=== PATIENT | female | born 1995 | race Caucasian/White ===

== ENCOUNTER 2017-06-21 18:59 | Emergency (ER) | payer BC, OTHER ==
[2017-06-21] MEDS: CEPHALEXIN 500 MG CAP PO (21:32)
[2017-06-21] MEDS: LIDOCAINE 1%/EPI 30 ML INJ INJ (21:32)
[2017-06-21] MEDS: TRIMETHOPRIM/SULFAMETHOX (DS) TAB PO (21:32)
== END 2017-06-21 22:25 | disposition home or self-care (01) ==
LOC: FTE 22:25
DX: L03.818 Cellulitis of other sites (principal)
CPT/HCPCS: 10060; 99284-25

== ENCOUNTER 2018-04-11 08:33 | Emergency (ER) | payer BC ==
[2018-04-11] MEDS: ONDANSETRON (ODT) 4 MG TAB ODT (09:15)
[2018-04-11] MEDS: HYDROCODONE/APAP (5/325) TAB PO (09:15)
[2018-04-11 09:33] LABS: ADD MAN DIFF? NO
[2018-04-11 09:36] LABS: WHITE BLOOD COUNT 6.8 10^3/ul (4.8-10.8)
[2018-04-11 09:36] LABS: BASOPHILS % 0.3 % (0.0-2.0); EOSINOPHILS # 0.3 10^3/ul (0.0-0.5); EOSINOPHILS % 3.8 % (0.0-7.0); HEMATOCRIT 35.9 % (37.0-47.0); LYMPHOCYTES # 1.6 10^3/ul (0.8-2.9); LYMPHOCYTES % 22.9 % (15.0-51.0); MEAN CORPUSCULAR HEMOGLOBIN 25.6 pg (29.0-33.0); MEAN CORPUSCULAR HGB CONC 30.6 g/dl (32.0-37.0); MEAN CORPUSCULAR VOLUME 83.5 fl (82.0-101.0); MEAN PLATELET VOLUME 9.8 fl (7.4-10.4); MONOCYTE # 0.3 10^3/ul (0.3-0.9); MONOCYTES % 4.6 % (0.0-11.0); NEUTROPHIL # 4.6 10^3/ul (1.6-7.5); NEUTROPHILS % 68.1 % (39.0-77.0); PLATELET COUNT 449 10^3/UL (140-415); RED CELL DISTRIBUTION WIDTH 13.4 % (11.5-14.5)
[2018-04-11 09:56] LABS: ALANINE AMINOTRANSFERASE 11 IU/L (13-69); ALBUMIN 3.7 g/dl (3.3-4.9); ALBUMIN/GLOBULIN RATIO 1.15; ALKALINE PHOSPHATASE 113 IU/L (42-121); ANION GAP 11 (5-13); ASPARTATE AMINO TRANSFERASE 19 IU/L (15-46); BILIRUBIN,INDIRECT 0.4 mg/dl (0-1.1); BILIRUBIN,TOTAL 0.4 mg/dl (0.2-1.3); BLOOD UREA NITROGEN 8 mg/dl (7-20); CALCIUM 9.3 mg/dl (8.4-10.2); CARBON DIOXIDE 26 mmol/L (21-31); CHLORIDE 101 mmol/L (97-110); CREATININE 0.57 mg/dl (0.44-1.00); Estimated GFR > 60 mL/min (>60); POTASSIUM 4.5 mmol/L (3.5-5.1); SODIUM 138 mmol/L (135-144); TOTAL PROTEIN 6.9 g/dl (6.1-8.1)
[2018-04-11 09:58] LABS: GLUCOSE 441 mg/dl (70-220)
[2018-04-11] MEDS: SOD CHLORIDE 0.9% 1,000 ML IV (10:24)
[2018-04-11 10:42] LABS: ADD UMIC NO; UR ASCORBIC ACID NEGATIVE (NEGATIVE); UR BILIRUBIN (Dip) NEGATIVE (NEGATIVE); UR BLOOD (Dip) NEGATIVE (NEGATIVE); UR CLARITY CLEAR (CLEAR); UR COLOR STRAW (YELLOW); UR GLUCOSE (Dip) 3+ mg/dL (NEGATIVE); UR KETONES (Dip) TRACE mg/dL (NEGATIVE); UR LEUKOCYTE ESTERASE (Dip) NEGATIVE Leu/ul (NEGATIVE); UR NITRITE (Dip) NEGATIVE (NEGATIVE); UR SPECIFIC GRAVITY (Dip) 1.022 (1.003-1.030); UR TOTAL PROTEIN (Dip) NEGATIVE (NEGATIVE); UR UROBILINOGEN (Dip) NEGATIVE (NEGATIVE)
[2018-04-11] MEDS: INSULIN LISPRO 100 UNIT/ML VIAL SC (10:49)
== END 2018-04-11 11:25 | disposition home or self-care (01) ==
LOC: FTE 08:33
DX: E11.65 Type 2 diabetes mellitus with hyperglycemia (principal); Z48.01 Encounter for change or removal of surgical wound dressing; Z79.4 Long term (current) use of insulin
CPT/HCPCS: 80053; 81003; 81025; 82962; 85025; 96360; 99284-25